=== PATIENT | female | born 1995 | race Caucasian/White ===

== ENCOUNTER 2019-05-22 07:38 | Outpatient (CLI) | payer BC ==
--- NOTE | 2019-05-22 10:56 | MRI ---
MRI BRAIN WITH AND WITHOUT CONTRAST: Date: 05/22/2019 INDICATION: Epilepsy. No comparison. \ FINDINGS: Ventricles have normal size and position. There is no evidence of restricted diffusion. No evidence o f mass or edema. No white matter abnormality. Hippocampal formations appear symmetric. No abnormal en hancement. The cerebral arteries and dural venous sinuses show expected flow-voids. IMPRESSION: Unremarkable MRI of brain. POS: [facility]
[2019-05-22] MEDS ORDERED: Magnevist 469MG/ML 20 ML VIAL ONE (13:07)
== END 2019-05-22 07:39 | disposition home or self-care (01) ==
LOC: BICMRI 07:38
PROVIDERS: ATTEND Psychiatry & Neurology Neurology
DX: G40.209 Localization-related (focal) (partial) symptomatic epilepsy and epileptic syndromes with complex partial seizures, not intractable, without status epilepticus (principal)
CPT/HCPCS: 70553; A9579